=== PATIENT | male | born 1980 | race Caucasian/White ===

== ENCOUNTER 2017-09-07 15:42 | Emergency (ER) | payer SELFPAY ==
[~2017-09-07] VITALS: Ht 170.2 cm; Wt 91.2 kg
--- NOTE | 2017-09-07 15:42 | NUR ---
Patient BIBA BLS accompanied by [facility] to be evaluated as pre-book, triaged by RN and transferred to [facility].
--- NOTE | 2017-09-07 15:43 | NUR ---
Dr. Jamison evaluating patient as pre-book in [facility].
[2017-09-07 16:05] VITALS: BP 123/96
--- NOTE | 2017-09-07 16:09 | NUR ---
ATTEMPTED TO CLEAN ABRASIONS---PT REFUSED
[2017-09-07 16:12] VITALS: BP 135/86
--- NOTE | 2017-09-07 16:13 | NUR ---
PATIENT BIB [facility] [facility]. OFFICER SUNI PATIENT EXAMINED BY . PATIENT MEDICALLY CLEARED AND RELEASED IN CUSTODY IN STABLE CONDITION. ORIGINAL PRE-BOOK FORM GIVEN TO OFFICER .
== END 2017-09-07 16:13 ==
LOC: MED 15:42
DX: Z02.89 Encounter for other administrative examinations (principal); S50.311A Abrasion of right elbow, initial encounter; S80.212A Abrasion, left knee, initial encounter; V43.52XA Car driver injured in collision with other type car in traffic accident, initial encounter; Y93.19 Activity, other involving water and watercraft; Y92.488 Other paved roadways as the place of occurrence of the external cause; Y99.8 Other external cause status
CPT/HCPCS: 99283